=== PATIENT | female | born 1985 | race American Indian/Alaskan Native ===

== ENCOUNTER 2018-01-27 22:30 | Emergency (ER) | payer MEDICAID, SELFPAY ==
[2018-01-27] MEDS ORDERED: Sodium Chloride 0.9% 10 ML Syringe FLUSH PRN (22:35)
[2018-01-27] MEDS ORDERED: Sodium Chloride 0.9% 1,000 ML IV ONE (22:36)
[2018-01-27] MEDS ORDERED: Metoclopramide 10 MG/2 ML SDV IVPUSH ONE (22:36)
[2018-01-27 22:39] VITALS: BP 113/68
[2018-01-27 23:14] LABS: CHLORIDE,CL 101 mmol/L (101-111); SODIUM,NA 134 mmol/L (135-145)
--- NOTE | 2018-01-28 02:11 | EDM.PDOC ---
ED HPI GENERAL MEDICAL PROBLEM - General Chief Complaint: Abdominal Pain Stated Complaint: BY AMBULANCE NOT ACCIDENT RELATED Time Seen by Provider: 01/27/18 22:50 Source of Information: Reports: Patient, EMS, EMS Notes Reviewed, RN, RN Notes Reviewed History Limitations: Reports: No Limitations - History of Present Illness INITIAL COMMENTS - FREE TEXT/NARRATIVE: Pt presents to the ER per [facility] with c/o right upper quadrant pain and N/V for several weeks. Patient states she is , and has not had her first appointment. Pt states LMP began 11/20/17. Patient states she is unable to keep anything down. Patient denies any fever, chills, CP, SOB, cough, or sore throat. 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 ED EXAM, GI/ABD - Physical Exam Exam: See Below Exam Limited By: No Limitations General Appearance: Alert, WD/WN, Mild Distress Eyes: Bilateral: Normal Appearance, EOMI Ears: Normal External Exam, Hearing Grossly Normal Nose: Normal Inspection Throat/Mouth: Normal Inspection, Normal Voice, No Airway Compromise Head: Atraumatic, Normocephalic Neck: Normal Inspection, Supple, Non-Tender, Full Range of Motion Respiratory/Chest: No Respiratory Distress, Lungs Clear, Normal Breath Sounds, No Accessory Muscle Use, Chest Non-Tender Cardiovascular: Normal Peripheral Pulses, Regular Rate, Rhythm, No Edema, No Gallop, No JVD, No Murmur, No Rub GI/Abdominal Exam: Normal Bowel Sounds, Soft, Tender (RUQ, across the epigastrum ) (Female) Exam: Deferred Rectal (Female) Exam: Deferred Back Exam: Normal Inspection, Full Range of Motion, NT Extremities: Normal Inspection, Normal Range of Motion, Non-Tender, Normal Capillary Refill, No Pedal Edema Neurological: Alert, Oriented, CN II-XII Intact, Normal Cognition, Normal Gait, Normal Reflexes, No Motor/Sensory Deficits Psychiatric: Normal Affect, Normal Mood Skin Exam: Warm, Dry, Intact, Normal Color, No Rash Lymphatic: No Adenopathy Course - Vital Signs Last Recorded V/S: Last Vital Signs Temp 98.4 F 01/27/18 22:36 Pulse 84 01/27/18 22:36 Resp 16 01/27/18 22:36 BP 113/68 01/27/18 22:36 Pulse Ox 100 01/27/18 22:36 - Orders/Labs/Meds Orders: Active Orders 24 hr Category Date Time Status Peripheral IV Care [RC] . DIRECTED Care 01/27/18 22:36 Active DRUG SCREEN URINE BIORAD [URCHEM] Stat Lab 01/27/18 23:40 Ordered HCG QUALITATIVE,URINE [URCHEM] Stat Lab 01/27/18 23:40 Ordered UA W/MICROSCOPIC [URIN] Stat Lab 01/27/18 23:37 Ordered Peripheral IV Insertion Adult [OM.PC] Stat Oth 01/27/18 22:35 Ordered Labs: Laboratory Tests 01/27/18 01/27/18 01/27/18 Range/Units 22:45 22:45 22:45 WBC 6.2 (5.0-10.0) 10^3/uL RBC 4.74 (4.2-5.4) 10^6/uL Hgb 12.4 D (12.0-16.0) g/dL Hct 36.4 L (37.0-47.0) % MCV 76.8 L (80-100) fL MCH 26.2 L (27.0-34.0) pg MCHC 34.1 (33.0-35.0) g/dL Plt Count 304 D (150-450) 10^3/uL Neut % (Auto) 75.8 H (42.2-75.2) % Lymph % (Auto) 13.3 L (20.5-50.1) % [place] % (Auto) 9.8 H (2-8) % Eos % (Auto) 0.8 L (1.0-3.0) % Baso % (Auto) 0.3 (0.0-1.0) % Sodium 134 L (135-145) mmol/L Potassium 4.2 (3.6-5.0) mmol/L Chloride 101 (101-111) mmol/L Carbon Dioxide 25.0 (21.0-31.0) mmol/L Anion Gap 12.2 BUN 6 L (7-18) mg/dL Creatinine 0.4 L (0.6-1.3) mg/dL Est Cr Clr Drug Dosing 183.37 mL/min Estimated GFR (MDRD) > 60 BUN/Creatinine Ratio 15.00 Glucose 89 (74-105) mg/dL Calcium 8.8 (8.4-10.2) mg/dl Total Bilirubin 8.2 H (0.2-1.0) mg/dL AST 1355 H (10-42) IU/L ALT 1205 H (10-60) IU/L Alkaline Phosphatase 146 H (42-121) IU/L Total Protein 7.1 (6.7-8.2) g/dl Albumin 3.4 (3.2-5.5) g/dl Globulin 3.7 Albumin/Globulin Ratio 0.92 Amylase 38 (28-100) U/L Lipase 15 L (22-51) U/L HCG, Quant > 1324 H (0-25) mIU/ml Beta HCG, Quant 57430 mIU/ml Urine Color (YELLOW) Urine Appearance (CLEAR) Urine pH (5.0-9.0) Ur Specific Bailey (1.005-1.030) Urine Protein (NEGATIVE) Urine Glucose (UA) (NEGATIVE) Urine Ketones (NEGATIVE) Urine Occult Blood (NEGATIVE) Urine Nitrite (NEGATIVE) Urine Bilirubin (NEGATIVE) Urine Urobilinogen (0.2-1.0) mg/dL Ur Leukocyte Esterase (NEGATIVE) Urine RBC /HPF Urine WBC (0-5/HPF) /HPF Ur Epithelial Cells /HPF Amorphous Sediment (0/HPF) /HPF Urine Bacteria (0-FEW/HPF) /HPF Urine Mucus /LPF Urine HCG, Qual Urine Opiates Screen (NEGATIVE) Ur Oxycodone Screen (NEGATIVE) Urine Methadone Screen (NEGATIVE) Ur Barbiturates Screen (NEGATIVE) U Tricyclic Antidepress (NEGATIVE) Ur Phencyclidine Scrn (NEGATIVE) Ur Amphetamine Screen (NEGATIVE) U Methamphetamines Scrn (NEGATIVE) Urine MDMA Screen (NEGATIVE) U Benzodiazepines Scrn (NEGATIVE) Urine Cocaine Screen (NEGATIVE) U Marijuana (THC) Screen (NEGATIVE) 01/27/18 01/27/18 01/27/18 Range/Units 23:37 23:40 23:40 WBC (5.0-10.0) 10^3/uL RBC (4.2-5.4) 10^6/uL Hgb (12.0-16.0) g/dL Hct (37.0-47.0) % MCV (80-100) fL MCH (27.0-34.0) pg MCHC (33.0-35.0) g/dL Plt Count (150-450) 10^3/uL Neut % (Auto) (42.2-75.2) % Lymph % (Auto) (20.5-50.1) % [place] % (Auto) (2-8) % Eos % (Auto) (1.0-3.0) % Baso % (Auto) (0.0-1.0) % Sodium (135-145) mmol/L Potassium (3.6-5.0) mmol/L Chloride (101-111) mmol/L Carbon Dioxide (21.0-31.0) mmol/L Anion Gap BUN (7-18) mg/dL Creatinine (0.6-1.3) mg/dL Est Cr Clr Drug Dosing mL/min Estimated GFR (MDRD) BUN/Creatinine Ratio Glucose (74-105) mg/dL Calcium (8.4-10.2) mg/dl Total Bilirubin (0.2-1.0) mg/dL AST (10-42) IU/L ALT (10-60) IU/L Alkaline Phosphatase (42-121) IU/L Total Protein (6.7-8.2) g/dl Albumin (3.2-5.5) g/dl Globulin Albumin/Globulin Ratio Amylase (28-100) U/L Lipase (22-51) U/L HCG, Quant (0-25) mIU/ml Beta HCG, Quant mIU/ml Urine Color Leah (YELLOW) Urine Appearance Turbid (CLEAR) Urine pH 6.5 (5.0-9.0) Ur Specific Bailey >= 1.030 (1.005-1.030) Urine Protein 30 H (NEGATIVE) Urine Glucose (UA) Negative (NEGATIVE) Urine Ketones 40 H (NEGATIVE) Urine Occult Blood Negative (NEGATIVE) Urine Nitrite Negative (NEGATIVE) Urine Bilirubin Large H (NEGATIVE) Urine Urobilinogen 1.0 (0.2-1.0) mg/dL Ur Leukocyte Esterase Trace H (NEGATIVE) Urine RBC 0-5 /HPF Urine WBC 10-20 H (0-5/HPF) /HPF Ur Epithelial Cells Many H /HPF Amorphous Sediment Few (0/HPF) /HPF Urine Bacteria Moderate H (0-FEW/HPF) /HPF Urine Mucus Many H /LPF Urine HCG, Qual Positive Urine Opiates Screen Negative (NEGATIVE) Ur Oxycodone Screen Negative (NEGATIVE) Urine Methadone Screen Negative (NEGATIVE) Ur Barbiturates Screen Negative (NEGATIVE) U Tricyclic Antidepress Negative (NEGATIVE) Ur Phencyclidine Scrn Negative (NEGATIVE) Ur Amphetamine Screen Negative (NEGATIVE) U Methamphetamines Scrn Negative (NEGATIVE) Urine MDMA Screen Negative (NEGATIVE) U Benzodiazepines Scrn Negative (NEGATIVE) Urine Cocaine Screen Negative (NEGATIVE) U Marijuana (THC) Screen Negative (NEGATIVE) Meds: Medications Discontinued Medications Generic Name Dose Route Start Last Admin Trade Name Freq PRN Reason Stop Dose Admin Sodium Chloride 1,000 mls @ 999 mls/hr 01/27/18 22:36 01/27/18 23:14 Normal Saline IV 01/27/18 23:36 999 mls/hr .BOLUS ONE Administration Metoclopramide HCl 10 mg 01/27/18 22:36 01/27/18 23:17 Reglan IVPUSH 01/27/18 22:37 10 mg ONETIME ONE Administration Sodium Chloride 10 ml 01/27/18 22:35 01/27/18 23:17 Saline Flush FLUSH 10 ml ASDIRECTED PRN Administration Keep Vein Open - Re-Assessments/Exams Free Text/Narrative Re-Assessment/Exam: 01/28/18 02:12 Discussed pt case with Dr. Brown. He states the patient will need to be transferred to [facility] due to resources unavailable here. Discussed the pt case with Dr. Mora who agreed to accept the patient for transfer. Departure - Departure Time of Disposition: 01:42 Disposition: DC/Tfer to Acute Hospital 02 Condition: Fair Clinical Impression: Elevated LFTs Qualifiers: Weeks of gestation: 10 weeks Qualified Code(s): Z3A.10 - 10 weeks gestation of - Discharge Information Referrals: Leon Bowling MD [Primary Care Provider] - Forms: ED Department Discharge, Interfacility Transfer EMTALA - My Orders Last 24 Hours: My Active Orders 01/27/18 22:35 Peripheral IV Insertion Adult [OM.PC] Stat 01/27/18 22:36 Peripheral IV Care [RC] . DIRECTED 01/27/18 23:37 UA W/MICROSCOPIC [URIN] Stat 01/27/18 23:40 DRUG SCREEN URINE BIORAD [URCHEM] Stat HCG QUALITATIVE,URINE [URCHEM] Stat - Assessment/Plan Last 24 Hours: My Active Orders 01/27/18 22:35 Peripheral IV Insertion Adult [OM.PC] Stat 01/27/18 22:36 Peripheral IV Care [RC] . DIRECTED 01/27/18 23:37 UA W/MICROSCOPIC [URIN] Stat 01/27/18 23:40 DRUG SCREEN URINE BIORAD [URCHEM] Stat HCG QUALITATIVE,URINE [URCHEM] Stat
== END 2018-01-28 01:40 ==
LOC: DL.ED 22:30
DX: O99.89 Other specified diseases and conditions complicating pregnancy, childbirth and the puerperium (principal); R79.89 Other specified abnormal findings of blood chemistry; Z88.0 Allergy status to penicillin; Z79.899 Other long term (current) drug therapy; Z87.891 Personal history of nicotine dependence; Z3A.10 10 weeks gestation of pregnancy
CPT/HCPCS: 36415; 80053; 80305; 81001; 81025; 82150; 83690; 84702; 85025; 96361; 96374; 99284; J2765; J7030; J7050

== ENCOUNTER 2022-05-08 20:37 | Inpatient (IN) | payer MEDICAID ==
[2022-05-08] MEDS ORDERED: Ondansetron 4 MG/2 ML SDV IVPUSH PRN (20:52)
[2022-05-08] MEDS ORDERED: Famotidine 20 MG/2 ML SDV IVPUSH PRN (20:52)
[2022-05-08] MEDS ORDERED: Tranexamic Acid 1,000 MG in Sodium Chloride 0.9% 100 ML IV PRN ×2 (20:52→23:42)
[2022-05-08] MEDS ORDERED: Betamethasone Acetate/Betamethasone Sod Phosphate 30 MG/5 ML MDV IM SCH (21:00)
[2022-05-08] MEDS ORDERED: ceFAZolin 2 GM in Premix Bag 1 BAG IV ONE (21:03)
[2022-05-08] MEDS ORDERED: Lactated Ringers 1,000 ML IV ONE ×2 (21:04→21:05)
[2022-05-08] MEDS ORDERED: ceFAZolin 1 GM in Sodium Chloride 0.9% 50 ML IV ONE (21:05)
[2022-05-08] MEDS: Lactated Ringers 1,000 ML IV SCH (21:40)
[2022-05-08] MEDS ORDERED: fentaNYL 100 MCG/2 ML SDV IVPUSH ONE (22:30)
[2022-05-08 23:10] LABS: BENZODIAZEPINE,URINE NEGATIVE (NEGATIVE); MDMA (ECSTASY), URINE NEGATIVE (NEGATIVE); METHAMPHETAMINES,URINE NEGATIVE (NEGATIVE); OPIATES,URINE NEGATIVE (NEGATIVE)
[2022-05-08 23:11] LABS: AMPHETAMINES,URINE NEGATIVE (NEGATIVE); BARBITURATES,URINE NEGATIVE (NEGATIVE); METHADONE,URINE NEGATIVE (NEGATIVE); OXYCODONE,URINE NEGATIVE (NEGATIVE); PHENCYCLIDINE,URINE NEGATIVE (NEGATIVE); TCA,URINE NEGATIVE (NEGATIVE)
[2022-05-08] MEDS ORDERED: Methylergonovine 0.2 MG Tab PO PRN (23:42)
[2022-05-08] MEDS ORDERED: Oxytocin 10 Units/1 ML SDV IM PRN (23:42)
[2022-05-08] MEDS ORDERED: Carboprost Tromethamine 250 MCG/1 ML Amp IM PRN (23:42)
[2022-05-08] MEDS ORDERED: Misoprostol 400 MCG (4 X 100 MCG TAB) RECTAL ONE (23:42)
[2022-05-08] MEDS ORDERED: Citric Acid/Sodium Citrate Solution 30 ML Cup PO ONE (23:42)
[2022-05-08] MEDS ORDERED: Sodium Chloride 0.9% 10 ML Syringe FLUSH PRN (23:42)
[2022-05-08] MEDS ORDERED: Oxytocin/Normal Saline 30 UNIT/500 ML BAG IV SCH (23:45)
[2022-05-08] MEDS ORDERED: Lactated Ringers 1,000 ML IV SCH ×2 (23:45)
[2022-05-09] MEDS ORDERED: fentaNYL 100 MCG/2 ML SDV IVPUSH ONE (00:36)
[2022-05-09] MEDS ORDERED: Oxytocin/Normal Saline 60 UNIT/1,000 ML BAG ONE (01:23)
[2022-05-09] MEDS: Lactated Ringers 1,000 ML IV SCH ×5 (01:27→06:48)
[2022-05-09] MEDS ORDERED: Ondansetron 4 MG/2 ML SDV IV ONE (01:45)
[2022-05-09] MEDS ORDERED: Oxytocin/Normal Saline 30 UNIT/500 ML BAG IV ONE (01:45)
[2022-05-09] MEDS ORDERED: Dexamethasone 4 MG/ML SDV IV ONE (01:45)
[2022-05-09] MEDS: ceFAZolin 2 GM in Premix Bag 1 BAG IV ONE ×2 (01:50→05:12)
[2022-05-09] MEDS ORDERED: Midazolam 1 MG/ML 2 ML SDV IV ONE (02:00)
[2022-05-09] MEDS ORDERED: Ketorolac 30 MG/ML SDV IVPUSH ONE (02:30)
[2022-05-09] MEDS ORDERED: Ketorolac 30 MG/ML SDV IVPUSH PRN (08:30)
[2022-05-09] MEDS: Sodium Chloride 0.9% 10 ML Syringe FLUSH SCH ×2 (10:59→21:03)
[2022-05-09] MEDS ORDERED: Docusate Sodium 100 MG Cap PO PRN (11:08)
[2022-05-09] MEDS ORDERED: Acetaminophen/oxyCODONE 325-5 MG Tab PO PRN ×3 (12:18→13:03)
[2022-05-09] MEDS ORDERED: diphenhydrAMINE 50 MG/ML SDV IVPUSH PRN (13:03)
[2022-05-09] MEDS ORDERED: Ondansetron 4 MG/2 ML SDV IVPUSH PRN (13:03)
[2022-05-09] MEDS ORDERED: Methylergonovine 0.2 MG/1 ML Amp IM PRN (13:03)
[2022-05-09] MEDS ORDERED: Tranexamic Acid 1,000 MG in Sodium Chloride 0.9% 100 ML IV PRN (13:03)
[2022-05-09] MEDS ORDERED: Carboprost Tromethamine 250 MCG/1 ML Amp IM PRN (13:03)
[2022-05-09] MEDS ORDERED: ePHEDrine 50 MG/ML SDV IVPUSH PRN (13:03)
[2022-05-09] MEDS ORDERED: Naloxone 2 MG/2 ML Syringe IVPUSH PRN (13:03)
[2022-05-09] MEDS ORDERED: Misoprostol 400 MCG (4 X 100 MCG TAB) RECTAL PRN (13:03)
[2022-05-09] MEDS ORDERED: Acetaminophen 325 MG Tab PO PRN (13:03)
[2022-05-09] MEDS ORDERED: Lactated Ringers 1,000 ML IV SCH (13:15)
[2022-05-09] MEDS: Simethicone 80 MG Tab.Chew PO SCH ×2 (17:17→20:58)
[2022-05-09] MEDS: Ketorolac 30 MG/ML SDV IVPUSH SCH ×2 (17:17→23:16)
[2022-05-09] MEDS: Acetaminophen/oxyCODONE 325-5 MG Tab PO PRN ×2 (17:18→21:13)
[2022-05-09] MEDS: Docusate Sodium 100 MG Cap PO PRN (20:58)
[2022-05-09] MEDS ORDERED: Ketorolac 30 MG/ML SDV IVPUSH SCH (23:15)
[2022-05-10] MEDS: Acetaminophen/oxyCODONE 325-5 MG Tab PO PRN ×4 (06:21→20:02)
[2022-05-10] MEDS: Simethicone 80 MG Tab.Chew PO SCH ×5 (09:36→20:03)
[2022-05-10] MEDS: Docusate Sodium 100 MG Cap PO PRN ×2 (09:36→21:36)
[2022-05-10] MEDS: Prenatal Multivitamin with Calcium/Folic Acid/Iron Tab PO SCH (09:36)
[2022-05-10] MEDS: Ibuprofen 800 MG Tab PO PRN ×2 (09:38→16:57)
[2022-05-10] MEDS: Sodium Chloride 0.9% 10 ML Syringe FLUSH SCH (11:23)
[2022-05-10] MEDS: Benzocaine/Cetylpyridinium/Menthol Lozenge MUCMEM PRN ×2 (12:27→15:13)
[2022-05-10] MEDS ORDERED: diphenhydrAMINE 25 MG Tab PO PRN (21:25)
[2022-05-11] MEDS: Ibuprofen 800 MG Tab PO PRN (02:01)
[2022-05-11] MEDS: Acetaminophen/oxyCODONE 325-5 MG Tab PO PRN ×2 (02:01→07:46)
[2022-05-11 07:46] VITALS: BP 104/53; PULSE 83
[2022-05-11] MEDS: Prenatal Multivitamin with Calcium/Folic Acid/Iron Tab PO SCH (08:59)
[2022-05-11] MEDS: Simethicone 80 MG Tab.Chew PO SCH (08:59)
== END 2022-05-11 10:05 | disposition home or self-care (01) | DRG 786 ==
LOC: DL.OBCHECK 20:37 → DL.OB 20:52 → DL.MS 05-10 13:07
PROVIDERS: ADMIT Family Medicine; ATTEND Family Medicine
PROC: 10D00Z1 Extraction of Products of Conception, Low, Open Approach (ICD-10-PCS; principal; 2022-05-08)
PROC: 4A1HXCZ Monitoring of Products of Conception, Cardiac Rate, External Approach (ICD-10-PCS; 2022-05-08)
DX: O30.043 Twin pregnancy, dichorionic/diamniotic, third trimester (principal); U07.1 COVID-19; O98.52 Other viral diseases complicating childbirth; Z3A.32 32 weeks gestation of pregnancy; Z37.2 Twins, both liveborn; Z88.0 Allergy status to penicillin; O32.0XX1 Maternal care for unstable lie, fetus 1; O32.0XX2 Maternal care for unstable lie, fetus 2
CPT/HCPCS: 01961; 36415; 51702; 80305-QW; 81003; 85025; 85027; 86850; 86900; 86901; 87081; A9270-GY; J0690; J0702; J1100; J1200; J1885; J2250; J2405; J2590; J3010; J3490; J7120

== ENCOUNTER 2023-05-19 21:12 | Emergency (ER) | payer MEDICAID ==
[2023-05-19] MEDS: Aspirin 81 MG Tab.Chew PO ONE (22:05)
[2023-05-19 22:09] LABS: BASOPHILS PERCENT AUTO 0.2 % (0.0-1.0); EOSINOPHILS PERCENT AUTO 1.3 % (1.0-3.0); HEMATOCRIT 38.8 % (37.0-47.0); HEMOGLOBIN 12.4 g/dL (12.0-16.0); LYMPHOCYTES PERCENT AUTO 19.9 % (20.5-50.1); MEAN CORPUSCULAR HEMOGLOBIN 25.9 pg (27.0-34.0); MONOCYTES PERCENT AUTO 8.4 % (2-8); NEUTROPHILS PERCENT AUTO 70.2 % (42.2-75.2); PLATELET COUNT,PLT 252 10^3/uL (150-450); RED BLOOD CELL COUNT 4.79 10^6/uL (4.2-5.4); WHITE BLOOD CELL COUNT,WBC 8.7 10^3/uL (5.0-10.0)
[2023-05-19] MEDS: Sodium Chloride 0.9% 10 ML Syringe FLUSH PRN (22:09)
[2023-05-19 22:24] LABS: HCG QUALITATIVE,SERUM NEGATIVE (NEGATIVE)
[2023-05-19 22:36] LABS: A/G RATIO 0.8; ALANINE AMINOTRANSFERASE,ALT 18 U/L (14-59); ALBUMIN 3.9 g/dL (3.4-5.0); ALKALINE PHOSPHATASE 88 U/L (46-116); ANION GAP 16.8 mEq/L (7-13); ASPARTATE AMNIOTRANSFERASE,AST 10 U/L (15-37); BILIRUBIN TOTAL 0.6 mg/dL (0.2-1.0); BLOOD UREA NITROGEN,BUN 18 mg/dL (7-18); BUN/CREATININE RATIO 16.1 (No establ ref range); CALCIUM 9.1 mg/dL (8.5-10.1); CARBON DIOXIDE,CO2 26 mmol/L (21-32); CHLORIDE,CL 102 mmol/L (98-107); CREATININE 1.12 mg/dL (0.55-1.02); EST CRCL DRUG DOSING (CG) 68.65 mL/min; GLUCOSE RANDOM 94 mg/dL (70-99); MAGNESIUM 2.3 mg/dL (1.8-2.4); POTASSIUM,K 3.8 mmol/L (3.5-5.1); PROTEIN TOTAL,TP 8.7 g/dL (6.4-8.2); SODIUM,NA 141 mmol/L (136-145)
[2023-05-19 22:42] LABS: ESTIMATED GFR 69 mL/min (>=60)
[2023-05-20 00:47] VITALS: BP 110/68; PULSE 79
== END 2023-05-20 00:46 | disposition home or self-care (01) ==
LOC: EDBD 21:12 → EDUNIT# 21:12 → DL.ED 21:12
DX: R07.89 Other chest pain (principal); R07.2 Precordial pain; Z88.0 Allergy status to penicillin
CPT/HCPCS: 36415; 80053; 83735; 84484; 84703; 85025; 93005; 99285; A9270; J3490